=== PATIENT | female | born 1980 | race Two or more races ===

== ENCOUNTER 2019-10-31 17:43 | Emergency (ER) | payer SELFPAY ==
[~2019-10-31] VITALS: Ht 160 cm; Wt 55.0 kg
[2019-10-31] MEDS ORDERED: OLANZAPINE 10 MG/VIAL IM ONE (18:30)
[2019-10-31 18:33] VITALS: BP 129/63
[2019-10-31 18:42] LABS: BASOPHILS % 0.9 % (0.0-2.0); EOSINOPHILS % 1.8 % (0.0-5.0); HEMOGLOBIN. 9.7 g/dL (12.0-16.0); LYMPHOCYTES % 23.5 % (20.0-50.0); MEAN CORPUSCULAR HEMOGLOBIN 22.7 pg (28.0-32.0); MEAN CORPUSCULAR VOLUME 72.6 fL (81.0-99.0); MEAN PLATELET VOLUME 8.5 fl (7.4-10.4); MONOCYTES % 7.5 % (2.0-8.0); NEUTROPHILS % 66.3 % (40.0-76.0); PLATELET 432 x1000/uL (130-400); RED BLOOD CELL COUNT 4.27 mill/uL (4.2-5.4); RED CELL DISTRIBUTION WIDTH 22.4 % (11.6-14.6)
[2019-10-31 18:45] LABS: CLARITY URINE CLOUDY (CLEAR); COLOR URINE YELLOW (YELLOW); KETONES URINE TRACE (NEGATIVE); LEUKOCYTE ESTERASE URINE 1+ (NEGATIVE); NITRITE URINE NEGATIVE (NEGATIVE); OCCULT BLOOD URINE NEGATIVE (NEGATIVE); PROTEIN URINE 1+ (NEGATIVE); SPECIFIC GRAVITY URINE 1.031 (1.005-1.030)
[2019-10-31 19:00] LABS: HCG SCREEN NEGATIVE
[2019-10-31 19:20] LABS: *BARBITURATES SCREEN URINE NEGATIVE (NEGATIVE); *BENZODIAZEPINES SCREEN URINE NEGATIVE (NEGATIVE)
[2019-10-31 19:36] LABS: *COCAINE SCREEN URINE NEGATIVE (NEGATIVE)
[2019-10-31 19:37] LABS: METHADONE URINE SCREEN NEGATIVE (NEGATIVE); OPIATES URINE SCREEN NEGATIVE (NEGATIVE); PHENCYCLIDINE URINE SCREEN NEGATIVE (NEGATIVE)
[2019-10-31 19:40] LABS: CANNABINOID URINE SCREEN NEGATIVE (NEGATIVE)
[2019-10-31 19:50] LABS: *AMPHETAMINES SCREEN URINE PRESUMTIVE POSITIVE (NEGATIVE)
[2019-10-31 22:19] LABS: PLATELET ESTIMATE INCREASED
== END 2019-10-31 20:06 | disposition home or self-care (01) ==
LOC: ER 17:43
DX: F20.9 Schizophrenia, unspecified (principal); F31.9 Bipolar disorder, unspecified
CPT/HCPCS: 36415; 80048; 80305; 81003; 81025; 84703; 85025; 87086; 93005; 96372; 99283; J3490